=== PATIENT | female | born 1960 | race Hispanic/Latino ===

== ENCOUNTER 2017-09-20 13:39 | Emergency (ER) | payer OTHER ==
[2017-09-20 16:38] LABS: Urine Blood NEGATIVE (NEG); Urine Glucose NEGATIVE (NEG); Urine Protein NEGATIVE (NEG); Urine Specific Gravity >1.030 (1.005-1.030)
[2017-09-20 16:47] LABS: Absolute Monocytes 0.3 K/uL (0.1-1.3); Absolute Neutrophil 3.3 K/uL (1.8-8.0); Basophils % 0.8 % (0-1.3); Eosinophils % 2.5 % (0-4.4); Hematocrit 40.8 % (36.0-45.0); Lymphocytes % 34.1 % (15.3-44.8); MCH 31.4 pg (27.0-35.0); MCV 95.8 fL (80-100); MPV 8.7 fL (7.6-11.3); Monocytes % 4.8 % (3.3-12.3); RBC Red Blood Cell Count 4.26 M/uL (3.86-4.86)
--- NOTE | 2017-09-20 16:49 | RAD REPORT ---
EXAM DESCRIPTION: RAD - Chest Single View - 09/20/2017 4:33 pm CLINICAL HISTORY: Hypertension, shortness of breath COMPARISON: January 2017 TECHNIQUE: AP portable chest image was obtained 1625 hours . FINDINGS: Lungs are clear of mass, infiltrate or failure. Lung markings are similar to comparison. H eart and vasculature are normal. No measurable pleural effusion and no pneumothorax. No gross bony ab normality seen. No acute aortic findings suspected. IMPRESSION: No acute cardiopulmonary process. No significant interval change.
[2017-09-20 16:55] LABS: Protime INR 0.93
[2017-09-20 17:00] LABS: Potassium 3.7 mEq/L (3.6-5.0)
[2017-09-20 17:06] LABS: Albumin 4.2 g/dL (3.2-5.5); Bilirubin Direct 0.1 mg/dL (0-0.2); Bilirubin Total 0.6 mg/dL (0.3-1.2); Magnesium 1.9 mg/dL (1.8-2.5); Protein, Total 7.3 g/dL (6.0-8.3)
--- NOTE | 2017-09-20 17:23 | ER ---
Nurse's Notes [facility] Name: Stefani Schaefer Age: 57 yrs Sex: Female : 1960 Arrival Date: 09/20/2017 Time: 13:44 Bed 20 Private MD: Diagnosis: Elevated blood-pressure reading, without diagnosis of hypertension Presentation: 09/20 14:09 Presenting complaint: Patient states: for a couple of days, i haven't felt that great, hj BP is micki high; denies headache, chest pain or nausea; numbness and tingling on R arm started last Wednesday; reports like a burning pain on my chest;. Transition of care: patient was not received from another setting of care. Onset of symptoms was September 20, 2017. Care prior to arrival: None. 14:09 Method Of Arrival: Ambulatory 14:09 Acuity: THEA 3 hj Triage Assessment: 14:13 General: Appears in no apparent distress. uncomfortable, Behavior is calm, cooperative, hj appropriate for age. Pain: Denies pain. Historical: - Allergies: 14:13 No Known Allergies; hj - Home Meds: 14:13 citalopram 40 mg tab 1 tab once daily [Active]; Xanax Oral [Active]; atorvastatin oral hj oral [Active]; Folic Acid Oral [Active]; - PMHx: 14:13 Anxiety; Crohn's; hj - PSHx: 14:13 Tonsillectomy; ; hj - Immunization history:: Adult Immunizations up to date. - Social history:: Smoking status: Patient/guardian denies using tobacco. Screenin:27 Abuse screen: Denies threats or abuse. Nutritional screening: No deficits noted. em Tuberculosis screening: No symptoms or risk factors identified. Fall Risk None identified. Assessment: 16:00 General: Appears in no apparent distress. comfortable, Behavior is calm, cooperative, em Denies fever. Pain: Denies pain. Neuro: Level of Consciousness is awake, alert, obeys commands, Oriented to person, place, time, situation, Poiser are equal bilaterally Moves all extremities. Speech is normal, Facial symmetry appears normal, Intact Reports dizziness, Denies numbness headache. Cardiovascular: Heart tones S1 S2 present Capillary refill < 3 seconds Patient's skin is warm and dry. Respiratory: Airway is patent Respiratory effort is even, unlabored, Respiratory pattern is regular, symmetrical. GI: Abdomen is round non-distended. : Urine is clear. EENT: No signs and/or symptoms were reported regarding the EENT system. Derm: Skin is intact, Skin is pink, warm \T\ dry. Musculoskeletal: Range of motion: intact in all extremities. 16:10 Reassessment: Patient appears in no apparent distress at this time. I agree with the iw assessment by Marquise Gayle LVN. 17:02 Reassessment: Patient appears in no apparent distress at this time. Patient and/or em family updated on plan of care and expected duration. Pain level reassessed. Patient is alert, oriented x 3, equal unlabored respirations, skin warm/dry/pink. Patient states feeling better. Patient states symptoms have improved. Vital Signs: 14:13 BP 150 / 87; Pulse 85; Resp 18; Temp 98.2(TE); Pulse Ox 96% on R/A; Weight 80.74 kg; hj Height 5 ft. 9 in. (175.26 cm); Pain 0/10; 15:36 BP 146 / 79; Pulse 74; Resp 16; Pulse Ox 96% on R/A; mh5 17:01 BP 128 / 75 LA; mh5 17:01 BP 136 / 80 RA; mh5 14:13 Body Mass Index 26.29 (80.74 kg, 175.26 cm) ED Course: 13:44 Patient arrived in ED. mr 14:11 Triage completed. hj 14:13 Arm band placed on right wrist. hj 15:32 Marquise Gayle LVN is Primary Nurse. em 15:35 David Garcia PA is PHCP. cp 15:35 David Parra MD is Attending Physician. cp 15:46 EKG done, by technical systems architect. reviewed by David SAHNI. at1 16:20 No provider procedures requiring assistance completed. Inserted saline lock: 20 gauge em in right antecubital area, using aseptic technique. Blood collected. 16:20 Initial lab(s) drawn, by me, sent to lab. em 16:27 Patient has correct armband on for positive identification. Bed in low position. Call em light in reach. Side rails up X2. Adult w/ patient. 16:28 X-ray completed. Portable x-ray completed in exam room. jr1 16:31 XRAY Chest (1 view) In Process Unspecified. EDMS 17:22 Nelson Gtz MD is Referral Physician. cp 17:31 IV discontinued, intact, bleeding controlled, No redness/swelling at site. Pressure em dressing applied. Administered Medications: No medications were administered Outcome: 17:22 Discharge ordered by MD. cp 17:31 Discharged to home ambulatory. em 17:31 Condition: good 17:31 Discharge instructions given to Instructed on discharge instructions, follow up and referral plans. Demonstrated understanding of instructions, follow-up care. 17:32 Patient left the ED. em Signatures: Dispatcher [employer] EDMI Cata Sen mr Warner, Tomasa jr1 Marquise Gayle, SEAFOOD SPECIALIST SEAFOOD SPECIALIST em Stacie Gaston, RN RN iw Olya mccarty, clerk entry level EKG Tat1 Asif Colin RN RN David Mcbride, PA PA Cata Carranza 5 Corrections: (The following items were deleted from the chart) 14:14 14:13 Pulse 85bpm; Resp 18bpm; Pulse Ox 96% RA; Temp 98.2F Temporal; 80.74 kg; Height 5 hj ft. 9 in.; BMI: 26.2; Pain 0/10; hj
--- NOTE | 2017-09-20 17:23 | EDPHYS ---
Physician Documentation [facility] Name: Stefani Schaefer Age: 57 yrs Sex: Female : 1960 Arrival Date: 09/20/2017 Time: 13:44 Bed 20 Private MD: ED Physician David Parra HPI: 09/20 16:17 This 57 yrs old Female presents to ER via Ambulatory with complaints of High cp Blood Pressure, Numbness Of Arm. 16:17 The patient has elevated blood pressure and discovered this at home, with a home cp device. Onset: The symptoms/episode began/occurred over last couple days. 16:17 Severity of symptoms: in the emergency department the blood pressure is unchanged. cp 16:17 Associated signs and symptoms: Pertinent negatives: chest pain, dyspnea, headache, cp visual changes, vomiting, weakness. Historical: - Allergies: 14:13 No Known Allergies; hj - Home Meds: 14:13 citalopram 40 mg tab 1 tab once daily [Active]; Xanax Oral [Active]; atorvastatin oral hj oral [Active]; Folic Acid Oral [Active]; - PMHx: 14:13 Anxiety; Crohn's; hj - PSHx: 14:13 Tonsillectomy; ; hj - Immunization history:: Adult Immunizations up to date. - Social history:: Smoking status: Patient/guardian denies using tobacco. ROS: 16:20 Constitutional: Negative for body aches, chills, fever, poor PO intake. cp 16:20 Eyes: Negative for injury, pain, redness, and discharge, ENT: Negative for injury, cp pain, and discharge, Neck: Negative for injury, pain, and swelling, Cardiovascular: Negative for chest pain, palpitations, and edema, Respiratory: Negative for shortness of breath, cough, wheezing, and pleuritic chest pain, Abdomen/GI: Negative for abdominal pain, nausea, vomiting, diarrhea, and constipation, Skin: Negative for injury, rash, and discoloration, Neuro: Negative for headache, weakness, numbness, tingling, and seizure. 16:20 All other systems are negative. Exam: 15:45 ECG was reviewed by the Attending Physician. cp 16:30 Constitutional: The patient appears in no acute distress, alert, awake, cp non-diaphoretic, non-toxic, well developed, well nourished. 16:30 Head/Face: Normocephalic, atraumatic. Eyes: Pupils equal round and reactive to light, cp extra-ocular motions intact. Lids and lashes normal. Conjunctiva and sclera are non-icteric and not injected. Cornea within normal limits. Periorbital areas with no swelling, redness, or edema. ENT: Nares patent. No nasal discharge, no septal abnormalities noted. Tympanic membranes are normal and external auditory canals are clear. Oropharynx with no redness, swelling, or masses, exudates, or evidence of obstruction, uvula midline. Mucous membranes moist. Chest/axilla: Normal chest wall appearance and motion. Nontender with no deformity. No lesions are appreciated. Cardiovascular: Regular rate and rhythm with a normal S1 and S2. No gallops, murmurs, or rubs. Normal PMI, no JVD. No pulse deficits. Respiratory: Lungs have equal breath sounds bilaterally, clear to auscultation and percussion. No rales, rhonchi or wheezes noted. No increased work of breathing, no retractions or nasal flaring. Abdomen/GI: Soft, non-tender, with normal bowel sounds. No distension or tympany. No guarding or rebound. No evidence of tenderness throughout. Back: No spinal tenderness. No costovertebral tenderness. Full range of motion. Skin: Warm, dry with normal turgor. Normal color with no rashes, no lesions, and no evidence of cellulitis. Neuro: Awake and alert, GCS 15, oriented to person, place, time, and situation. Cranial nerves II-XII grossly intact. Motor strength 5/5 in all extremities. Sensory grossly intact. Cerebellar exam normal. Normal gait. Vital Signs: 14:13 BP 150 / 87; Pulse 85; Resp 18; Temp 98.2(TE); Pulse Ox 96% on R/A; Weight 80.74 kg; hj Height 5 ft. 9 in. (175.26 cm); Pain 0/10; 15:36 BP 146 / 79; Pulse 74; Resp 16; Pulse Ox 96% on R/A; mh5 17:01 BP 128 / 75 LA; mh5 17:01 BP 136 / 80 RA; mh5 14:13 Body Mass Index 26.29 (80.74 kg, 175.26 cm) MDM: 15:35 Patient medically screened. cp 17:20 Data reviewed: vital signs, nurses notes, lab test result(s), EKG, radiologic studies, cp plain films. 17:20 Test interpretation: by ED physician or midlevel provider: ECG, plain radiologic cp studies. Counseling: I had a detailed discussion with the patient and/or guardian regarding: the historical points, exam findings, and any diagnostic results supporting the discharge/admit diagnosis, the presence of at least one elevated blood pressure reading (>120/80) during this emergency department visit, lab results, radiology results, the need for outpatient follow up, a family practitioner, to return to the emergency department if symptoms worsen or persist or if there are any questions or concerns that arise at home. Response to treatment: the patient's symptoms have mildly improved after treatment, VSS. No complaints of chest pain or paresthesias reported by patient while in ED. Will discharge to home for continued monitoring. 09/20 16:09 Order name: Basic Metabolic Panel; Complete Time: 17:12 cp 09/20 17:12 Interpretation: Normal except: GFR 79. cp 09/20 16:09 Order name: CBC with Diff; Complete Time: 17:12 cp 09/20 16:09 Order name: Ckmb; Complete Time: 17:12 cp 09/20 16:09 Order name: CPK; Complete Time: 17:12 cp 09/20 16:09 Order name: LFT's; Complete Time: 17:12 cp 09/20 16:09 Order name: Magnesium; Complete Time: 17:12 cp 09/20 16:09 Order name: EKG; Complete Time: 16:10 cp 09/20 16:09 Order name: EKG - Nurse/Tech; Complete Time: 16:25 cp 09/20 16:09 Order name: PT-INR; Complete Time: 17:12 cp 09/20 16:09 Order name: Ptt, Activated; Complete Time: 17:12 cp 09/20 16:09 Order name: Troponin (emerg Dept Use Only); Complete Time: 17:12 cp 09/20 16:09 Order name: XRAY Chest (1 view); Complete Time: 17:12 cp 09/20 16:25 Order name: Urine Dipstick--Ancillary (enter results); Complete Time: 17:12 ag 09/20 17:12 Interpretation: Normal except: UESTR TRACE. cp 09/20 16:25 Order name: Urine --Ancillary (enter results); Complete Time: 17:12 ag 09/20 17:13 Interpretation: Reviewed. cp 09/20 16:09 Order name: Cardiac monitoring; Complete Time: 16:25 cp 09/20 16:09 Order name: IV Saline Lock; Complete Time: 16:25 cp 09/20 16:09 Order name: Labs collected and sent; Complete Time: 16: cp 09/20 16:09 Order name: O2 Per Protocol; Complete Time: 16:25 cp 09/20 16:09 Order name: O2 Sat Monitoring; Complete Time: 16:25 cp 09/20 16:09 Order name: Urine Dipstick-Ancillary (obtain specimen); Complete Time: 16: cp 09/20 16:09 Order name: Blood Pressure Recheck: bilateral upper extremities; Complete Time: 17:02 cp EC:45 Rate is 72 beats/min. Rhythm is regular. VA interval is normal. QRS interval is cp prolonged at 106 msec. QT interval is normal. No ST changes noted. Interpreted by me. Reviewed by me. Administered Medications: No medications were administered Disposition: 09/21 06:55 Co-signature as Attending Physician, David Parra MD I agree with the assessment and alin plan of care. Disposition: 09/20/17 17:22 Discharged to Home. Impression: Elevated blood-pressure reading, without diagnosis of hypertension. - Condition is Stable. - Discharge Instructions: Heart Disease Prevention, How to Take Your Blood Pressure, [id number], Aspirin and Your Heart, DASH Eating Plan. - Medication Reconciliation Form, Thank You Letter, Antibiotic Education, Prescription Opioid Use form. - Follow up: Nelson Gtz MD; When: 1 - 2 days; Reason: Recheck today's complaints. - Problem is new. - Symptoms have improved. Signatures: Dispatcher [employer] David Perez MD MD cha Munoz, Edgar, FABRICATION DEPARTMENT SUPERVISOR FABRICATION DEPARTMENT SUPERVISOR Asif Carlisle RN RN David Mcbride PA PA cp
--- NOTE | 2017-09-20 21:44 | EKG ---
Test Date: 2017-09-20 Test Time: 15:42:17 Service Associate: ELSA MEASUREMENT RESULTS: Intervals: Rate: 72 SD: 170 QRSD: 106 QT: 400 QTc: 438 Parks: P: 58 SD: 170 QRS: -61 T: 47 INTERPRETIVE STATEMENTS: Normal sinus rhythm Incomplete right bundle branch block Left anterior fascicular block Cannot rule out Anterior infarct, age undetermined Abnormal ECG Compared to ECG 02/11/2017 12:37:23 Incomplete right bundle-branch block now present Myocardial infarct finding now present Sinus arrhythmia no longer present Electronically Signed On 09-20-17 21:44:08 CDT by Nelson Gtz
== END 2017-09-20 17:32 | disposition home or self-care (01) ==
LOC: ER 13:39
DX: R03.0 Elevated blood-pressure reading, without diagnosis of hypertension; F41.9 Anxiety disorder, unspecified
CPT/HCPCS: 36415; 71045; 80048; 80076; 81003; 81025; 82550; 82553; 83735; 84484; 85025; 85610; 85730; 93005; 99284

== ENCOUNTER 2017-10-23 00:40 | Emergency (ER) | payer OTHER ==
[2017-10-23] MEDS ORDERED: MORPHINE 4 MG/ML SYR ONE (01:01)
[2017-10-23] MEDS ORDERED: ONDANSETRON 4 MG/2 ML VIAL ONE (01:02)
[2017-10-23 01:34] LABS: Absolute Monocytes 0.5 K/uL (0.1-1.3); Absolute Neutrophil 5.2 K/uL (1.8-8.0); Basophils % 1.3 % (0-1.3); Eosinophils % 2.6 % (0-4.4); Hematocrit 39.8 % (36.0-45.0); Lymphocytes % 32.9 % (15.3-44.8); MCH 31.3 pg (27.0-35.0); MCV 94.8 fL (80-100); MPV 8.8 fL (7.6-11.3)
[2017-10-23 01:39] LABS: Bicarbonate 25 mEq/L (21-31); Glucose Level 118 mg/dL (65-120); Lipase 23 U/L (22-51); Potassium 3.5 mEq/L (3.6-5.0); Sodium Level 137 mEq/L (135-145)
[2017-10-23 01:43] LABS: ALT/SGPT 23 IU/L (10-60); AST/SGOT 21 IU/L (10-42); Alkaline Phosphatase 51 IU/L (42-121); BUN Blood Urea Nitrogen 12 mg/dL (6-20); Bilirubin Total 0.8 mg/dL (0.3-1.2); Protein, Total 7.1 g/dL (6.0-8.3)
[2017-10-23] MEDS ORDERED: KETOROLAC 30 MG/ML INJ ONE (02:50)
--- NOTE | 2017-10-23 04:20 | ER ---
Nurse's Notes [facility] Name: Stefani Schaefer Age: 57 yrs Sex: Female : 1960 Arrival Date: 10/23/2017 Time: 00:40 Bed 5 Private MD: Diagnosis: Other abdominal pain;acute chron's flare Presentation: 10/23 00:55 Presenting complaint: Patient states: abd pain, chills, and vomiting since last night. aa1 Reports hx of Crohn's but states that this is different. Transition of care: patient was not received from another setting of care. Onset of symptoms was October 22, 2017. Initial Sepsis Screen: Does the patient meet any 2 criteria? No. Patient's initial sepsis screen is negative. Does the patient have a suspected source of infection? No. Patient's initial sepsis screen is negative. Care prior to arrival: None. 00:55 Method Of Arrival: Wheelchair aa1 00:55 Acuity: THEA 3 aa1 Historical: - Allergies: 00:58 No Known Allergies; aa1 - Home Meds: 00:58 atorvastatin Oral [Active]; citalopram 40 mg tab 1 tab once daily [Active]; Folic Acid aa1 Oral [Active]; Xanax Oral [Active]; aspirin 81 mg Oral TbEC 1 tab once daily [Active]; - PMHx: 00:58 Anxiety; Crohn's; aa1 - PSHx: 00:58 Tonsillectomy; ; aa1 - Immunization history:: Flu vaccine is up to date. - Social history:: Smoking status: Patient uses tobacco products, smokes one pack cigarettes per day. Screenin:00 Abuse screen: Denies threats or abuse. Denies injuries from another. Nutritional aa1 screening: No deficits noted. Tuberculosis screening: No symptoms or risk factors identified. Fall Risk None identified. Assessment: 01:00 General: Appears in no apparent distress. uncomfortable, Behavior is calm, cooperative, aa1 appropriate for age. Pain: Complains of pain in abdomen Pain currently is 9 out of 10 on a pain scale. Quality of pain is described as sharp, Pain began 4 hours ago. Is continuous. Neuro: Level of Consciousness is awake, alert, obeys commands, Oriented to person, place, time, situation. Cardiovascular: Denies chest pain, palpitations, shortness of breath. Respiratory: Airway is patent Respiratory effort is even, unlabored, Respiratory pattern is regular, symmetrical. GI: Abdomen is non-distended, Bowel sounds present X 4 quads. Abd is soft X 4 quads Reports lower abdominal pain, upper abdominal pain, nausea, vomiting. : No signs and/or symptoms were reported regarding the genitourinary system. EENT: No signs and/or symptoms were reported regarding the EENT system. Derm: Skin is intact, is healthy with good turgor, Skin is pink, warm \T\ dry. Musculoskeletal: Circulation, motion, and sensation intact. Capillary refill < 3 seconds. 01:48 Reassessment: Patient appears in no apparent distress at this time. Patient and/or aa1 family updated on plan of care and expected duration. Pain level reassessed. Patient is alert, oriented x 3, equal unlabored respirations, skin warm/dry/pink. Awaiting lab results. 02:28 Reassessment: Patient appears in no apparent distress at this time. Patient and/or aa1 family updated on plan of care and expected duration. Pain level reassessed. patient is back from CT. found asleep on bed. 02:56 Reassessment: patient complains of pain. provider informed and advised to give pain aa1 medication. 03:11 Reassessment: Patient appears in no apparent distress at this time. Patient and/or aa1 family updated on plan of care and expected duration. Pain level reassessed. Patient is alert, oriented x 3, equal unlabored respirations, skin warm/dry/pink. Awaiting CT results. 04:33 Reassessment: discussed d/c and ff-up instructions, verbalized understanding. mg2 Vital Signs: 00:58 BP 147 / 79; Pulse 81; Resp 20; Temp 97.9; Pulse Ox 96% on R/A; Weight 81.65 kg; Height aa1 5 ft. 9 in. (175.26 cm); Pain 9; 01:48 BP 140 / 75; Pulse 83; Resp 18; Pulse Ox 95% on R/A; aa1 02:39 BP 137 / 70; Pulse 90; Resp 18; Pulse Ox 98% ; Pain 3/10; aa1 03:10 BP 143 / 85; Pulse 67; Resp 18; Pulse Ox 95% on R/A; aa1 04:29 BP 111 / 73; Pulse 69; Resp 18; Pulse Ox 95% on R/A; aa1 00:58 Body Mass Index 26.58 (81.65 kg, 175.26 cm) aa1 ED Course: 00:40 Patient arrived in ED. ds1 00:46 Fred Esparza MD is Attending Physician. ps1 00:55 Tamar Cordero, RN is Primary Nurse. aa1 00:57 Triage completed. aa1 00:58 Arm band placed on right wrist. Patient placed in an exam room, on a stretcher. aa1 01:00 Patient has correct armband on for positive identification. Placed in gown. Bed in low aa1 position. Call light in reach. Pulse ox on. NIBP on. Warm blanket given. 01:15 CBC with Diff Sent. mg2 01:15 CMP Sent. mg2 01:15 Creatinine for Radiology Sent. mg2 01:15 Lipase Sent. mg2 01:15 No provider procedures requiring assistance completed. Inserted saline lock: 20 gauge mg2 in right antecubital area, using aseptic technique. 01:16 Radiology exam delayed due to lab results not completed at this time. (BUN/Creatinine). jg1 02:12 CT Abd/Pelvis - W/Contrast In Process Unspecified. EDMS 02:23 CT completed. Patient tolerated procedure well. Patient moved to CT via stretcher. Patient moved back from CT. 04:18 Alan Hopson MD is Referral Physician. ps1 Administered Medications: 01:14 Drug: Zofran 4 mg Route: IVP; Site: right antecubital; mg2 02:22 Follow up: Response: No adverse reaction; Nausea is decreased aa1 01:14 Drug: morphine 4 mg Route: IVP; Site: right antecubital; mg2 02:22 Follow up: Response: No adverse reaction; Pain is decreased aa1 03:17 Drug: TORadol 30 mg Route: IVP; Site: right antecubital; mg2 04:29 Follow up: Response: No adverse reaction; Pain is decreased aa1 Outcome: 04:19 Discharge ordered by . ps1 04:33 Discharged to mg2 04:34 Discharged to home ambulatory, with family. mg2 04:34 Condition: stable 04:34 Discharge instructions given to patient, family, Instructed on discharge instructions, follow up and referral plans. Demonstrated understanding of instructions, follow-up care, medications, Prescriptions given X 5 04:35 Patient left the ED. mg2 Signatures: Dispatcher [employer] EDMS Tamar Cordero RN RN aa1 Elizabeth Jackson Ervin eh Sanford, Demi ds1 Fred Esparza MD MD ps1 Reese Man RN RN mg2
--- NOTE | 2017-10-23 04:20 | EDPHYS ---
Physician Documentation [facility] Name: Stefani Schaefer Age: 57 yrs Sex: Female : 1960 Arrival Date: 10/23/2017 Time: 00:40 Bed 5 Private MD: ED Physician Fred Esparza HPI: 10/23 04:21 This 57 yrs old Female presents to ER via Wheelchair with complaints of ps1 Abdominal Distention, Abdominal Pain. 04:21 hx of chron's disease. has generalized abdominal pain. Does not localize. Pain rated ps1 moderate. Associated with vomiting. No diarrhea or hematochezia. . Historical: - Allergies: 00:58 No Known Allergies; aa1 - Home Meds: 00:58 atorvastatin Oral [Active]; citalopram 40 mg tab 1 tab once daily [Active]; Folic Acid aa1 Oral [Active]; Xanax Oral [Active]; aspirin 81 mg Oral TbEC 1 tab once daily [Active]; - PMHx: 00:58 Anxiety; Crohn's; aa1 - PSHx: 00:58 Tonsillectomy; ; aa1 - Immunization history:: Flu vaccine is up to date. - Social history:: Smoking status: Patient uses tobacco products, smokes one pack cigarettes per day. ROS: 04:21 Constitutional: Negative for fever, chills, and weight loss, Eyes: Negative for injury, ps1 pain, redness, and discharge, ENT: Negative for injury, pain, and discharge, Cardiovascular: Negative for chest pain, palpitations, and edema, Respiratory: Negative for shortness of breath, cough, wheezing, and pleuritic chest pain. 04:21 Abdomen/GI: Positive for abdominal pain, nausea and vomiting, abdominal cramps. 04:21 MS/Extremity: Negative for injury and deformity, Skin: Negative for injury, rash, and ps1 discoloration, Neuro: Negative for headache, weakness, numbness, tingling, and seizure. Exam: 04:21 Constitutional: This is a well developed, well nourished patient who is awake, alert, ps1 and in no acute distress. Head/Face: Normocephalic, atraumatic. Eyes: Pupils equal round and reactive to light, extra-ocular motions intact. Lids and lashes normal. Conjunctiva and sclera are non-icteric and not injected. Chest/axilla: Normal chest wall appearance and motion. Nontender with no deformity. No lesions are appreciated. Cardiovascular: Regular rate and rhythm. No gallops, murmurs, or rubs. Normal PMI, no JVD. No pulse deficits. Respiratory: Lungs have equal breath sounds bilaterally, clear to auscultation and percussion. No rales, rhonchi or wheezes noted. No increased work of breathing, no retractions or nasal flaring. Abdomen/GI: Soft, non-tender, with normal bowel sounds. No distension or tympany. No guarding or rebound. No evidence of tenderness throughout. Skin: Warm, dry with normal turgor. Normal color with no rashes, no lesions, and no evidence of cellulitis. MS/ Extremity: Pulses equal, no cyanosis. Neurovascular intact. Full, normal range of motion. Neuro: Awake and alert, GCS 15, oriented to person, place, time, and situation. Cranial nerves II-XII grossly intact. Sensory grossly intact. Vital Signs: 00:58 BP 147 / 79; Pulse 81; Resp 20; Temp 97.9; Pulse Ox 96% on R/A; Weight 81.65 kg; Height aa1 5 ft. 9 in. (175.26 cm); Pain 9/10; 01:48 BP 140 / 75; Pulse 83; Resp 18; Pulse Ox 95% on R/A; aa1 02:39 BP 137 / 70; Pulse 90; Resp 18; Pulse Ox 98% ; Pain 3/10; aa1 03:10 BP 143 / 85; Pulse 67; Resp 18; Pulse Ox 95% on R/A; aa1 04:29 BP 111 / 73; Pulse 69; Resp 18; Pulse Ox 95% on R/A; aa1 00:58 Body Mass Index 26.58 (81.65 kg, 175.26 cm) aa1 MDM: 00:56 Patient medically screened. ps1 04:21 Data reviewed: vital signs, nurses notes, lab test result(s), radiologic studies, CT ps1 scan. ED course: consistent with acute chron's flare. No leukocytosis. No abscess. Stable for discharge. home with pain control, steroids, antibiotics. . 10/23 00:55 Order name: CBC with Diff; Complete Time: 01:48 ps1 10/23 00:55 Order name: Creatinine for Radiology; Complete Time: 01:44 ps1 10/23 00:55 Order name: Lipase; Complete Time: 01:44 ps1 10/23 00:55 Order name: CMP; Complete Time: 01:44 ps1 10/23 00:56 Order name: CT Abd/Pelvis - W/Contrast; Complete Time: 12:47 ps1 10/23 00:55 Order name: IV Saline Lock; Complete Time: 01:15 ps1 10/23 00:55 Order name: Labs collected and sent; Complete Time: 01:15 ps1 Administered Medications: 01:14 Drug: Zofran 4 mg Route: IVP; Site: right antecubital; mg2 02:22 Follow up: Response: No adverse reaction; Nausea is decreased aa1 01:14 Drug: morphine 4 mg Route: IVP; Site: right antecubital; mg2 02:22 Follow up: Response: No adverse reaction; Pain is decreased aa1 03:17 Drug: TORadol 30 mg Route: IVP; Site: right antecubital; mg2 04:29 Follow up: Response: No adverse reaction; Pain is decreased aa1 Disposition: 10/23/17 04:19 Discharged to Home. Impression: Other abdominal pain, acute chron's flare. - Condition is Stable. - Discharge Instructions: Abdominal Pain, Adult. - Prescriptions for Flagyl 500 mg Oral Tablet - take 1 tablet by ORAL route every 12 hours for 7 days; 14 tablet. Tylenol- Codeine #3 300-30 mg Oral Tablet - take 2 tablet by ORAL route every 6 hours As needed; 30 tablet. Zofran 4 mg Oral Tablet - take 1 tablet by ORAL route every 12 hours As needed; 20 tablet. Cipro 500 mg Oral Tablet - take 1 tablet by ORAL route every 12 hours for 7 days; 14 tablet. Medrol (Huy) 4 mg Oral Tablets, Dose Pack - take 1 tablet by ORAL route as directed - follow package instructions; 1 packet. sulfasalazine 500 mg Oral tablet - take 1 tablet by ORAL route 4 times per day after meals; 60 tablet. - Medication Reconciliation Form, Thank You Letter, Antibiotic Education, Prescription Opioid Use form. - Follow up: Alan Hopson MD; When: 2 - 3 days; Reason: Recheck today's complaints, Continuance of care, Re-evaluation by your physician. Follow up: Emergency Department; When: As needed; Reason: Fever > 102 F, Worsening of condition. - Problem is an acute exacerbation. - Symptoms are unchanged. Signatures: Dispatcher [employer] Lauren Benoit, IFEANYI-C IFEANYI-Tamar Malloy, RN RN aa1 Fred Esparza MD MD ps1 Reese Man RN RN mg2
--- NOTE | 2017-10-23 10:33 | RAD REPORT ---
EXAM DESCRIPTION: CTAbdomen Pelvis W Contrast - 10/23/2017 4:40 am CLINICAL HISTORY: Abdominal pain. COMPARISON: None. TECHNIQUE: Biphasic CT imaging of the abdomen and pelvis was performed with 100 ml non-ionic IV cont rast. All CT scans are performed using dose optimization technique as appropriate and may include automated exposure control or mA/KV adjustment according to patient size. FINDINGS: The lung bases are clear. The liver, spleen, pancreas, adrenal glands are within normal limits. 17 mm area of irregular enhance ment in the right kidney upper pole laterally on venous phase noted. Additional bilateral renal cysts are present the largest in the inferior pole left kidney measuring 23 mm. No bowel obstruction, free air, free fluid or abscess. Significant dilatation and inflammatory change the terminal ileum seen with fecalization. Mild free fluid is seen in the right lower quadrant. Mild -to-moderate secondary inflammatory changes also suspected in the cecum. Prominent sigmoid diverticul osis is present without diverticulitis. The appendix is not identified as a discrete structure, howev er, no secondary findings of appendicitis are identified. No evidence of significant lymphadenopath y. No suspicious bony findings. IMPRESSION: Acute terminal ileitis with fecalization is identified most compatible with underlying i nflammatory bowel disease/ Crohn's disease. 17 mm area of irregular enhancement right upper pole of the right kidney may represent a solid lesion . Advise nonemergent MR kidney follow-up with contrast for further assessment.
== END 2017-10-23 04:35 | disposition home or self-care (01) ==
LOC: ER 00:40
DX: K50.90 Crohn's disease, unspecified, without complications (principal); F41.9 Anxiety disorder, unspecified; F17.210 Nicotine dependence, cigarettes, uncomplicated; Z79.82 Long term (current) use of aspirin
CPT/HCPCS: 36415; 74177; 80053; 83690; 85025; 96374; 96375; 99284; J2405; Q9967

== ENCOUNTER 2018-09-08 10:49 | Emergency (ER) | payer OTHER ==
--- OUTSIDE RECORDS SUMMARY | 2018-09-08 10:56 | XMS REPORT | Continuity of Care Document ---
:1960 Author Organization Interface Problems Problem Status Onset Date Classification Date Comments Source Reported Medications Medication Details Route Status Patient Ordering Order Source Instructions Provider Date Allergies, Adverse Reactions, Alerts Substance Category Reaction Severity Reaction Status Date Comments Source type Reported Immunizations Immunization Date Given Site Status Last Updated Comments Source Results Order Results Value Reference Date Interpretation Comments Source Name Range Vital Signs Vital Sign Value Date Comments Source Encounters Location Location Encounter Encounter Reason Attending ADM DC Status Source Details Type Number For Provider Date Date Visit Outpatient [id number] GABE 04/28 [facility] Out[facility] [id number] GABE 07/14 [facility] Out[facility] [id number] GABE 04/05 [facility] Procedures Procedure Code Date Perfomer Comments Source
[2018-09-08 11:31] LABS: Absolute Lymphocytes (CBC) 1.4 K/uL (0.7-4.9); Absolute Monocytes 0.3 K/uL (0.1-1.3); Absolute Neutrophil 2.7 K/uL (1.8-8.0); Basophils % 0.9 % (0-1.3); Hematocrit 39.6 % (36.0-45.0); Lymphocytes % 30.6 % (15.3-44.8); MPV 8.2 fL (7.6-11.3); Monocytes % 6.6 % (3.3-12.3); RBC Red Blood Cell Count 4.09 M/uL (3.86-4.86)
--- NOTE | 2018-09-08 11:38 | RAD REPORT ---
EXAM DESCRIPTION: CT - Ct Stroke Brain Wo Cont - 09/08/2018 11:30 am CLINICAL HISTORY: Dizziness COMPARISON: 2017 TECHNIQUE: Computed axial tomography of the head was obtained. IV contrast was not requested. All CT scans are performed using dose optimization technique as appropriate and may include automated exposure control or mA/KV adjustment according to patient size. FINDINGS: An intracranial bleed is not seen . The ventricles are normal in caliber. No extra-axial fluid collection is noted. Fluid within the sinuses/ mastoids is not seen. A mucus retention cyst is present within the right ma xillary sinus IMPRESSION: No acute intracranial abnormality is seen. If patient's symptoms persist MRI of the bra in would be recommended. The exam was discussed with Jesus Manuel in the emergency room approximately 11 20 a.m. September 08, 2018
[2018-09-08] MEDS ORDERED: NA CHLORIDE 0.9% 1,000 ML ONE (11:39)
[2018-09-08] MEDS ORDERED: FOLIC ACID 5 MG/ML VIAL ONE (11:40)
--- NOTE | 2018-09-08 11:43 | RAD REPORT ---
EXAM DESCRIPTION: Leodan Single View09/08/2018 11:37 am CLINICAL HISTORY: Cough COMPARISON: July 2018 FINDINGS: The lungs appear clear of acute infiltrate. The heart is normal size IMPRESSION: No acute abnormalities displayed
[2018-09-08 11:49] LABS: ALT/SGPT 26 U/L (12-78); AST/SGOT 15 U/L (15-37); Albumin 3.7 g/dL (3.4-5.0); Alkaline Phosphatase 62 U/L (45-117); BUN Blood Urea Nitrogen 10 mg/dL (7-18); Bicarbonate 28 mmol/L (21-32); Bilirubin Direct 0.2 mg/dL (0-0.2); Bilirubin Total 0.8 mg/dL (0.2-1.0); Glucose Level 109 mg/dL (74-106); NT PRO-BNP 109 pg/mL (<125); Potassium 4.1 mmol/L (3.5-5.1); Protein, Total 7.4 g/dL (6.4-8.2); Sodium Level 140 mmol/L (136-145); Troponin (Emerg Dept Use Only) < 0.02 ng/mL (0.0-0.045)
[2018-09-08 12:49] LABS: Urine Blood NEGATIVE (NEG); Urine Glucose NEGATIVE (NEG); Urine Protein NEGATIVE (NEG)
[2018-09-08] MEDS ORDERED: ASPIRIN 81 MG CHEWABLE TABLET ONE (13:09)
--- NOTE | 2018-09-08 13:10 | RAD REPORT ---
EXAM DESCRIPTION: USCarotid Artery Bilateral09/08/2018 1:00 pm CLINICAL HISTORY: Syncope COMPARISON: 2017 FINDINGS: The velocity of the right internal carotid artery equals 107 cm/sec. The right ICA/CCA rat io 1.9 The velocity of the left internal carotid artery equals 100 cm/sec. The left ICA/CCA ratio 1.2 Mild plaque is present within the carotid arteries. The vertebral arteries demonstrate antegrade flow IMPRESSION: Mild plaque within the carotid arteries without evidence of a hemodynamically significan t stenosis NASCET criteria used. Mild 0-49% stenosis Moderate 50-69% stenosis Severe 70-99% stenosis
--- NOTE | 2018-09-08 13:24 | RAD REPORT ---
EXAM DESCRIPTION: MRI - Brain Wo Cont - 09/08/2018 1:12 pm CLINICAL HISTORY: Slurred speech COMPARISON: September 08, [address] TECHNIQUE: Axial, sagittal, and coronal magnetic images of the brain were obtained. Contrast was not requested FINDINGS: No abnormal signal is present within the brain. Mild cerebellar tonsillar ectopia is prese nt. Diffusion-weighted/ADC mapping does not reveal evidence of acute infarction. The ventricles are normal caliber. An extra-axial fluid collection is not present A mucus retention cyst is present the left maxillary sinus IMPRESSION: Mild cerebellar tonsillar ectopia No acute abnormality seen
--- NOTE | 2018-09-08 14:25 | EDPHYS ---
Physician Documentation [facility] Name: Stefani Schaefer Age: 58 yrs Sex: Female : 1960 Arrival Date: 09/08/2018 Time: 10:52 Bed 2 Private MD: Alan Hopson ED Physician David Parra HPI: 09/08 11:26 This 58 yrs old Female presents to ER via Wheelchair with complaints of alin Dizziness, Arm Pain. 11:26 The patient presents with dizziness. Onset: The symptoms/episode began/occurred just alin prior to arrival, this morning. Context: occurred at home. Modifying factors: The symptoms are alleviated by nothing, the symptoms are aggravated by nothing. Associated signs and symptoms: Pertinent positives:. Severity of symptoms: At their worst the symptoms were mild in the emergency department the symptoms have improved moderately. Patient's baseline: Neuro:. The patient has experienced similar episodes in the past, multiple times. Historical: - Allergies: 11:21 No Known Allergies; ph - PMHx: 11:21 Anxiety; Crohn's; ph - PSHx: 11:21 Tonsillectomy; ; ph - Immunization history:: Adult Immunizations up to date. - Family history:: not pertinent. - Social history:: Smoking status: Patient uses tobacco products, smokes one pack cigarettes per day. - Ebola Screening: : No symptoms or risks identified at this time. ROS: 11:26 Constitutional: Negative for fever, chills, and weight loss, Eyes: Negative for injury, alin pain, redness, and discharge, ENT: Negative for injury, pain, and discharge, Neck: Negative for injury, pain, and swelling, Cardiovascular: Negative for chest pain, palpitations, and edema, Respiratory: Negative for shortness of breath, cough, wheezing, and pleuritic chest pain, Abdomen/GI: Negative for abdominal pain, nausea, vomiting, diarrhea, and constipation, Back: Negative for injury and pain, : Negative for injury, bleeding, discharge, and swelling, MS/Extremity: Negative for injury and deformity, Skin: Negative for injury, rash, and discoloration, Psych: Negative for depression, anxiety, suicide ideation, homicidal ideation, and hallucinations, Allergy/Immunology: Negative for hives, rash, and allergies, Endocrine: Negative for neck swelling, polydipsia, polyuria, polyphagia, and marked weight changes, Hematologic/Lymphatic: Negative for swollen nodes, abnormal bleeding, and unusual bruising. 11:26 Neuro: Positive for dizziness. Exam: 11:26 Constitutional: This is a well developed, well nourished patient who is awake, alert, alin and in no acute distress. Head/Face: Normocephalic, atraumatic. Eyes: Pupils equal round and reactive to light, extra-ocular motions intact. Lids and lashes normal. Conjunctiva and sclera are non-icteric and not injected. Cornea within normal limits. Periorbital areas with no swelling, redness, or edema. ENT: Nares patent. No nasal discharge, no septal abnormalities noted. Tympanic membranes are normal and external auditory canals are clear. Oropharynx with no redness, swelling, or masses, exudates, or evidence of obstruction, uvula midline. Mucous membranes moist. Neck: Trachea midline, no thyromegaly or masses palpated, and no cervical lymphadenopathy. Supple, full range of motion without nuchal rigidity, or vertebral point tenderness. No Meningismus. Chest/axilla: Normal chest wall appearance and motion. Nontender with no deformity. No lesions are appreciated. Cardiovascular: Regular rate and rhythm with a normal S1 and S2. No gallops, murmurs, or rubs. Normal PMI, no JVD. No pulse deficits. Respiratory: Lungs have equal breath sounds bilaterally, clear to auscultation and percussion. No rales, rhonchi or wheezes noted. No increased work of breathing, no retractions or nasal flaring. Abdomen/GI: Soft, non-tender, with normal bowel sounds. No distension or tympany. No guarding or rebound. No evidence of tenderness throughout. Back: No spinal tenderness. No costovertebral tenderness. Full range of motion. Female : Normal external genitalia. Skin: Warm, dry with normal turgor. Normal color with no rashes, no lesions, and no evidence of cellulitis. MS/ Extremity: Pulses equal, no cyanosis. Neurovascular intact. Full, normal range of motion. Neuro: Awake and alert, GCS 15, oriented to person, place, time, and situation. Cranial nerves II-XII grossly intact. Motor strength 5/5 in all extremities. Sensory grossly intact. Cerebellar exam normal. Normal gait. Psych: Awake, alert, with orientation to person, place and time. Behavior, mood, and affect are within normal limits. Vital Signs: 11:21 BP 164 / 92; Pulse 79; Resp 20; Temp 98.6; Pulse Ox 99% on R/A; Weight 81.65 kg; Height ph 5 ft. 9 in. (175.26 cm); 11:48 BP 140 / 80; Pulse 70 MON; Resp 15; Pulse Ox 100% on R/A; sv 11:21 Body Mass Index 26.58 (81.65 kg, 175.26 cm) ph 11:48 Sinus Rhythm sv NIH Stroke Scale Scores: 11:38 NIHSS Score: 0 sv MDM: 11:09 Patient medically screened. [facility] 11:30 Data reviewed: vital signs, nurses notes, lab test result(s), EKG, radiologic studies, [facility] CT scan, doppler, MRI, plain films. 09/08 11:25 Order name: Basic Metabolic Panel; Complete Time: 11:56 [facility] 09/08 11:25 Order name: CBC with Diff; Complete Time: 11:56 [facility] 09/08 11:25 Order name: LFT's; Complete Time: 11:56 [facility] 09/08 11:25 Order name: Magnesium; Complete Time: 11:56 [facility] 09/08 11:25 Order name: NT PRO-BNP; Complete Time: 11:56 [facility] 09/08 11:25 Order name: PT-INR; Complete Time: 11:56 [facility] 09/08 11:25 Order name: Troponin (emerg Dept Use Only); Complete Time: 11:56 [facility] 09/08 11:25 Order name: XRAY Chest (1 view); Complete Time: 11:56 [facility] 09/08 11:25 Order name: CT Stroke Brain w/o Contrast; Complete Time: 11:56 [facility] 09/08 11:25 Order name: Urine Culture [facility] 09/08 11:30 Order name: US Carotid Artery Bilateral; Complete Time: 13:16 [facility] 09/08 12:07 Order name: Troponin I: 1 pm; Complete Time: 14:24 [facility] 09/08 12:17 Order name: Urine Dipstick--Ancillary (enter results); Complete Time: 12:53 09/08 11:25 Order name: EKG; Complete Time: 11:26 [facility] 09/08 11:25 Order name: Cardiac monitoring; Complete Time: 11:51 [facility] 09/08 11:25 Order name: EKG - Nurse/Tech; Complete Time: 11:51 [facility] 09/08 11:25 Order name: IV Saline Lock; Complete Time: 11: [facility] 09/08 11:25 Order name: Labs collected and sent; Complete Time: 11: [facility] 09/08 11:25 Order name: O2 Per Protocol; Complete Time: 11:51 [facility] 09/08 11:25 Order name: O2 Sat Monitoring; Complete Time: 11: [facility] 09/08 11:25 Order name: Urine Dipstick-Ancillary (obtain specimen); Complete Time: 19:52 [facility] 09/08 12:08 Order name: Brain Wo Cont; Complete Time: 13:29 EDMS Administered Medications: 11:40 Drug: foLIC Acid 1 mg Route: IVPB; Site: right antecubital; sv 11:41 Drug: NS 0.9% 1000 ml Route: IV; Rate: 1 bolus; Site: right antecubital; sv 12:40 Follow up: Response: No adverse reaction; IV Status: Completed infusion; IV Intake: sv 1000ml 13:31 Not Given (Patient Refused; took 81 mg aspirin MOLD PREPARER): Aspirin 81 mg PO once sg Point of Care Testing: Blood Glucose: 11:21 Blood Glucose: 99 mg/dL; ph Ranges: Critical Glucose Levels:Adult <50 mg/dl or >400 mg/dl <40 mg/dl or >180 mg/dl Disposition: 09/08/18 14:25 Discharged to Home. Impression: Dizziness and giddiness, Tobacco abuse counseling, Tobacco use. - Condition is Stable. - Discharge Instructions: Dizziness, Steps to Quit Smoking, Smoking Hazards, Stroke Prevention, Steps to Quit Smoking, Beiy-bo-Aery, Aspirin and Your Heart, Dizziness, [id number]. - Medication Reconciliation Form, Thank You Letter, Antibiotic Education, Prescription Opioid Use form. - Follow up: Alan Hopson; When: 2 - 3 days; Reason: Recheck today's complaints, Continuance of care, Re-evaluation by your physician. Follow up: Elton Hernandez; When: 2 - 3 days; Reason: Recheck today's complaints, Continuance of care, Re-evaluation by your physician. - Problem is new. - Symptoms have improved. NIH Stroke Scale - NIH Stroke Score Date: 09/08/2018 Time: 11:38 Total Score = 0 1a. Level of Consciousness (LOC) - 0(Alert) 1b. Level of Consciousness (LOC) (Year \T\ Age) - 0(Both) 1c. LOC Commands (Open \T\ Closes Eyes/Oxyhydrogen Welder) - 0(Both) 2. Best Gaze (Lateral Gaze Paresis) - 0(Normal) 3. Visual Field Loss - 0(No visual loss) 4. Facial Palsy - 0(Normal) 5a. Left Arm: Motor (10-second hold) - 0(No drift) 5b. Right Arm: Motor (10-second hold) - 0(No drift) 6a. Left Leg: Motor (5-second hold - always test supine) - 0(No drift) 6b. Right Leg: Motor (5-second hold - always test supine) - 0(No drift) 7. Limb Ataxia (finger/nose \T\ heel/lopez - test with eyes open) - 0(Absent) 8. Sensory Loss (pinprick arms/legs/face) - 0(Normal) 9. Best Language: Aphasia (description/naming/reading) - 0(No aphasia) 10. Dysarthria (speech clarity - read or repeat words) - 0(Normal) 11. Extinction and Inattention (visual/tactile/auditory/spatial/personal) - 0(No abnormality) Initials: sv Signatures: Dispatcher [employer] [facility] Savi Roper RN RN sv Anderson, Corey, MD MD cha Hall, Patricia, RN RN [facility], [place] EPPERSON sg Corrections: (The following items were deleted from the chart) 12:08 11:26 MR STROKE PROTOCOL+[id number].RAD.BRZ ordered. [facility] 14:59 14:25 09/08/2018 14:25 Discharged to Home. Impression: Dizziness and giddiness; sv Tobacco abuse counseling; Tobacco use. Condition is Stable. Discharge Instructions: Dizziness, Steps to Quit Smoking, Smoking Hazards, Stroke Prevention, Steps to Quit Smoking, [id number], Aspirin and Your Heart, Dizziness, [id number]. Forms are Medication Reconciliation Form, Thank You Letter, Antibiotic Education, Prescription Opioid Use. Follow up: Alan Hopson; When: 2 - 3 days; Reason: Recheck today's complaints, Continuance of care, Re-evaluation by your physician. Follow up: Elton Hernandez; When: 2 - 3 days; Reason: Recheck today's complaints, Continuance of care, Re-evaluation by your physician. Problem is new. Symptoms have improved. alin
--- NOTE | 2018-09-08 14:25 | ER ---
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 Transition of care: patient was not received from another setting of care. Onset of symptoms was September 08, 2018. Risk Assessment: Do you want to hurt yourself or someone else? Patient reports no desire to harm self or others. Care prior to arrival: Medication(s) given: ASA, 325 mg, x 1, at 1015. 11:18 Method Of Arrival: Wheelchair ph 11:18 Acuity: THEA 2 ph 11:47 Initial Sepsis Screen: Does the patient meet any 2 criteria? No. Patient's initial sv sepsis screen is negative. Does the patient have a suspected source of infection? No. Patient's initial sepsis screen is negative. Historical: - Allergies: 11:21 No Known Allergies; ph - PMHx: 11:21 Anxiety; Crohn's; ph - PSHx: 11:21 Tonsillectomy; ; ph - Immunization history:: Adult Immunizations up to date. - Family history:: not pertinent. - Social history:: Smoking status: Patient uses tobacco products, smokes one pack cigarettes per day. - Ebola Screening: : No symptoms or risks identified at this time. Screenin:38 VAN Screening: Arm Drift: Patient shows no arm weakness. Patient is VAN negative. sv Patient has been NPO before screening. The patient is alert, able to follow commands. The patient does not exhibit slurred or garbled speech The patient is not exhibiting difficulty speaking. The patient does not exhibit difficulty understanding words. The patient is able to swallow own secretions with no drooling or need for suction. Patient tolerated one teaspoon of water. No drooling, immediate coughing, gurgling, or clearing of the throat was noted. The patient tolerated 90mL of water. No drooling, immediate coughing, gurgling, or clearing of the throat was noted. The patient passed the bedside swallow screening. Oral medications may be given as ordered. Contact Physician for further diet orders. Provider notified of bedside swallow screening results: David Parra MD. 11:45 Abuse screen: Denies threats or abuse. Denies injuries from another. Nutritional sv screening: No deficits noted. Tuberculosis screening: No symptoms or risk factors identified. Fall Risk None identified. Assessment: 11:13 Reassessment: Pt taken to CT by RN. ph 11:38 General: Appears in no apparent distress. comfortable, well groomed, well developed, sv Behavior is calm, cooperative, appropriate for age. Pain: Denies pain. Neuro: Level of Consciousness is awake, alert, obeys commands, Oriented to person, place, time, situation, Legal Transcriptionist are equal bilaterally Moves all extremities. Full function Gait is steady, Speech is normal, Facial symmetry appears normal, Facial symmetry: tongue is midline, Pupils are PERRLA, Reports when she had the tingling it was on the posterior side of the right forearm and upper arm. Reports that it is gone at this time.. Denies dizziness, numbness headache. Cardiovascular: Patient's skin is warm and dry. Pulses are 3+ in right radial artery and left radial artery Rhythm is sinus rhythm. Respiratory: Airway is patent Respiratory effort is even, unlabored, Respiratory pattern is regular, symmetrical. Derm: Skin is pink, warm \\T\\ dry. 12:30 Reassessment: Patient appears in no apparent distress at this time. No changes from sv previously documented assessment. Patient and/or family updated on plan of care and expected duration. Pain level reassessed. Patient is alert, oriented x 3, equal unlabored respirations, skin warm/dry/pink. Vital Signs: 11:21 BP 164 / 92; Pulse 79; Resp 20; Temp 98.6; Pulse Ox 99% on R/A; Weight 81.65 kg; Height ph 5 ft. 9 in. (175.26 cm); 11:48 BP 140 / 80; Pulse 70 MON; Resp 15; Pulse Ox 100% on R/A; sv 11:21 Body Mass Index 26.58 (81.65 kg, 175.26 cm) ph 11:48 Sinus Rhythm sv NIH Stroke Scale Scores: 11:38 NIHSS Score: 0 sv ED Course: 10:52 Patient arrived in ED. tw3 10:52 Alan Hopson MD is Private Physician. tw3 11:09 David Parra MD is Attending Physician. alin 11:18 CT completed. Patient tolerated procedure well. Patient moved to CT via wheelchair. sj Patient moved back from CT. 11:20 Triage completed. ph 11:21 Initial lab(s) drawn, by ED staff, sent to lab. Inserted saline lock: 20 gauge in right sv antecubital area, using aseptic technique. ,using aseptic technique. done by Noemí EPPERSON Blood collected. 11:22 Arm band placed on. ph 11:30 Savi Roper RN is Primary Nurse. sv 11:30 CT Stroke Brain w/o Contrast In Process Unspecified. EDMS 11:36 X-ray completed. Portable x-ray completed in exam room. Patient tolerated procedure sw well. 11:38 XRAY Chest (1 view) In Process Unspecified. EDMS 11:41 Patient has correct armband on for positive identification. Placed in gown. Bed in low sv position. Call light in reach. Adult w/ patient. cafeteria monitor on. Pulse ox on. NIBP on. Door closed. Head of bed elevated. 11:41 EKG done, by anesthesia technician. reviewed by David Parra MD. at1 11:42 Lights dimmed. Warm blanket given. sv 11:48 Awaiting lab results, Awaiting radiology results. Awaiting: ultrasound and MRI. sv 12:10 Patient moved to MRI via wheelchair. sv 12:20 Brain Wo Cont In Process Unspecified. EDMS 13:08 US Carotid Artery Bilateral In Process Unspecified. EDMS 13:28 Repeat lab(s) drawn. by pa, sent to lab. dh3 14:25 Alan Hopson MD is Referral Physician. alin 14:25 Elton Hernandez MD is Referral Physician. alin 14:55 No provider procedures requiring assistance completed. IV discontinued, intact, sv bleeding controlled, No redness/swelling at site. Pressure dressing applied, d/c'd by Noemí EPPERSON. 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 sv Outcome: 14:25 Discharge ordered by MD. ogden 14:55 Discharged to home ambulatory, with family, discharge done by Noemí EPPERSON sv 14:55 Condition: stable 14:55 Instructed on the need for admit. 14:59 Patient left the ED. sv NIH Stroke Scale - NIH Stroke Score Date: 09/08/2018 Time: 11:38 Total Score = 0 1a. Level of Consciousness (LOC) - 0(Alert) 1b. Level of Consciousness (LOC) (Year \\T\\ Age) - 0(Both) 1c. LOC Commands (Open \\T\\ Closes Eyes/Private Secretary) - 0(Both) 2. Best Gaze (Lateral Gaze Paresis) - 0(Normal) 3. Visual Field Loss - 0(No visual loss) 4. Facial Palsy - 0(Normal) 5a. Left Arm: Motor (10-second hold) - 0(No drift) 5b. Right Arm: Motor (10-second hold) - 0(No drift) 6a. Left Leg: Motor (5-second hold - always test supine) - 0(No drift) 6b. Right Leg: Motor (5-second hold - always test supine) - 0(No drift) 7. Limb Ataxia (finger/nose \\T\\ heel/lopez - test with eyes open) - 0(Absent) 8. Sensory Loss (pinprick arms/legs/face) - 0(Normal) 9. Best Language: Aphasia (description/naming/reading) - 0(No aphasia) 10. Dysarthria (speech clarity - read or repeat words) - 0(Normal) 11. Extinction and Inattention (visual/tactile/auditory/spatial/personal) - 0(No abnormality) Initials: sv Signatures: Dispatcher [employer] Savi Vail RN RN sv Anderson, Corey, MD MD cha Jones, Rebekah Morillo, Olya, outdoor fitness trainer EKG Tat1 Rosalina Tate, ZEENAT RN ph Dante, Guillermina Watson, Kelly tw3 Deborah Malik 3 Chester Urrutia RN sg
--- NOTE | 2018-09-09 05:34 | EKG ---
Test Date: 2018-09-08 Test Time: 11:24:17 Process Manager: ELSA MEASUREMENT RESULTS: Intervals: Rate: 72 AK: 178 QRSD: 108 QT: 410 QTc: 448 [place]: P: 67 AK: 178 QRS: -30 T: 68 INTERPRETIVE STATEMENTS: Normal sinus rhythm Left axis deviation Incomplete right bundle branch block Abnormal ECG Compared to ECG 09/20/2017 15:42:17 Left-axis deviation now present Left anterior fascicular block no longer present Myocardial infarct finding no longer present Electronically Signed On 09-09-18 05:34:01 CDT by Nelsno Gtz
== END 2018-09-08 14:59 | disposition home or self-care (01) ==
LOC: ER 10:49
DX: R42 Dizziness and giddiness (principal); Z72.0 Tobacco use; Z71.6 Tobacco abuse counseling
CPT/HCPCS: 36415; 70450; 70551; 71045; 80048; 80076; 81003; 82962; 83735; 83880; 84484; 85025; 85610; 87086; 87088; 93005; 93880; 96361; 96374; 99285; J7030

== ENCOUNTER 2020-09-13 20:17 | Emergency (ER) | payer OTHER ==
[2020-09-13 22:37] LABS: Absolute Lymphocytes (CBC) 1.9 K/uL (0.7-4.9); Basophils % 1.1 % (0-1.3); Hematocrit 38.2 % (36.0-45.0); Lymphocytes % 38.2 % (15.3-44.8); MPV 8.3 fL (7.6-11.3)
[2020-09-13 22:53] LABS: ALT/SGPT 20 U/L (12-78); AST/SGOT 14 U/L (15-37); Albumin 3.7 g/dL (3.4-5.0); Alkaline Phosphatase 50 U/L (45-117); BUN Blood Urea Nitrogen 13 mg/dL (7-18); Bicarbonate 27 mmol/L (21-32); Bilirubin Direct 0.1 mg/dL (0-0.2); Bilirubin Total 0.4 mg/dL (0.2-1.0); Glucose Level 73 mg/dL (74-106); Lipase 130 U/L (73-393); Potassium 3.7 mmol/L (3.5-5.1); Protein, Total 7.4 g/dL (6.4-8.2); Sodium Level 141 mmol/L (136-145)
[2020-09-13 23:03] LABS: Urine Blood TRACE (NEG); Urine Glucose NEGATIVE (NEG); Urine Protein NEGATIVE (NEG); Urine Specific Gravity 1.025 (1.005-1.030); Urine pH 5.5 (5.0-7.0)
[2020-09-13 23:18] LABS: Urine Bacteria 20-50 /HPF (<20); Urine Mucus 2+ /HPF (NONE SEEN)
[2020-09-14] MEDS ORDERED: metroNIDAZOLE 500 MG TABLET ONE (00:26)
[2020-09-14] MEDS ORDERED: CEFTRIAXONE/SWI 1gm 1 GM/10 ML SYR ONE (00:26)
--- NOTE | 2020-09-14 01:31 | EDPHYS ---
Physician Documentation [facility] Name: Stefani Schaefer Age: 60 yrs Sex: Female : 1960 Arrival Date: 09/13/2020 Time: 20:18 Bed 15 Private MD: ED Physician Masood Pedro HPI: 09/13 22:07 This 60 yrs old Female presents to ER via Ambulatory with complaints of mh7 Abdominal Swelling. 22:07 The patient presents with abdominal pain in the lower abdomen, abdominal distention mh7 that is diffuse. Onset: The symptoms/episode began/occurred 2 day(s) ago. The symptoms do not radiate. Associated signs and symptoms: Pertinent positives: diarrhea, dysuria, Pertinent negatives: nausea and vomiting, anorexia, blood in stools, chest pain, constipation, fever, headache, hematuria, nausea, palpitations, shortness of breath, vaginal discharge, vomiting, vomiting blood. The symptoms are described as intermittent, vague, waxing/waning. Modifying factors: The symptoms are alleviated by nothing, the symptoms are aggravated by nothing. 22:09 Severity of pain: At its worst the pain was moderate 2 day(s) ago, in the emergency 7 department the pain has improved moderately. Historical: - Allergies: 20:31 No Known Allergies; ca1 - Home Meds: 20:31 atorvastatin Oral [Active]; Lisinopril Oral [Active]; aspirin 81 mg Oral TbEC 1 tab ca1 once daily [Active]; Folic Acid Oral [Active]; citalopram 40 mg tab 1 tab once daily [Active]; Lorazepam Oral [Active]; Sulfasalazine Oral [Active]; omeprazole 40 mg Oral cpDR 1 cap once daily [Active]; dicyclomine 20 mg oral tab 1 tab 4 times per day [Active]; - PMHx: 20:31 Crohn's; Anxiety; High Cholesterol; Hypertension; ca1 - PSHx: 20:31 Tonsillectomy; ; ca1 - Immunization history:: Flu vaccine is up to date. - Social history:: Smoking status: Patient reports the use of cigarette tobacco products, smokes one pack cigarettes per day. ROS: 22:09 Constitutional: Negative for fever, chills, and weight loss, Eyes: Negative for injury, mh7 pain, redness, and discharge, ENT: Negative for injury, pain, and discharge, Neck: Negative for injury, pain, and swelling, Cardiovascular: Negative for chest pain, palpitations, and edema, Respiratory: Negative for shortness of breath, cough, wheezing, and pleuritic chest pain, Back: Negative for injury and pain, MS/Extremity: Negative for injury and deformity, Skin: Negative for injury, rash, and discoloration, Neuro: Negative for headache, weakness, numbness, tingling, and seizure, Psych: Negative for depression, anxiety, suicide ideation, homicidal ideation, and hallucinations, Allergy/Immunology: Negative for hives, rash, and allergies, Endocrine: Negative for neck swelling, polydipsia, polyuria, polyphagia, and marked weight changes, Hematologic/Lymphatic: Negative for swollen nodes, abnormal bleeding, and unusual bruising. Exam: 22:09 Constitutional: This is a well developed, well nourished patient who is awake, alert, mh7 and in no acute distress. Head/Face: Normocephalic, atraumatic. Eyes: Pupils equal round and reactive to light, extra-ocular motions intact. Lids and lashes normal. Conjunctiva and sclera are non-icteric and not injected. Cornea within normal limits. Periorbital areas with no swelling, redness, or edema. Neck: Trachea midline, no thyromegaly or masses palpated, and no cervical lymphadenopathy. Supple, full range of motion without nuchal rigidity, or vertebral point tenderness. No Meningismus. Chest/axilla: Normal chest wall appearance and motion. Nontender with no deformity. No lesions are appreciated. Cardiovascular: Regular rate and rhythm with a normal S1 and S2. No gallops, murmurs, or rubs. Normal PMI, no JVD. No pulse deficits. Respiratory: Lungs have equal breath sounds bilaterally, clear to auscultation and percussion. No rales, rhonchi or wheezes noted. No increased work of breathing, no retractions or nasal flaring. 22:09 Back: No spinal tenderness. No costovertebral tenderness. Full range of motion. Skin: Warm, dry with normal turgor. Normal color with no rashes, no lesions, and no evidence of cellulitis. MS/ Extremity: Pulses equal, no cyanosis. Neurovascular intact. Full, normal range of motion. Neuro: Awake and alert, GCS 15, oriented to person, place, time, and situation. Cranial nerves II-XII grossly intact. Motor strength 5/5 in all extremities. Sensory grossly intact. Cerebellar exam normal. Normal gait. Psych: Awake, alert, with orientation to person, place and time. Behavior, mood, and affect are within normal limits. 22:09 Abdomen/GI: Inspection: distension, that is mild, in the abdomen diffusely, Bowel sounds: normal, in all quadrants, Palpation: mild abdominal tenderness, in the suprapubic area, mass, is not appreciated, rebound tenderness, is not appreciated, voluntary guarding, is not appreciated, involuntary guarding, is not appreciated, no appreciated organomegaly, Rectal exam: the exam is deferred, because of patient request, Indicators: McBurney's point is not tender, He's sign is negative, Rovsing's sign is negative, Obturator sign is negative, Psoas sign is negative, Liver: no appreciated palpable abnormalities, Hernia: not appreciated. Vital Signs: 20:25 BP 150 / 92; Pulse 51; Resp 16 S; Temp 97.9(TE); Pulse Ox 97% on R/A; Weight 83.01 kg ca1 (R); Height 5 ft. 9 in. (175.26 cm) (R); Pain 4/10; 09/14 00:15 BP 145 / 80; Pulse 55; Resp 19; Pulse Ox 98% ; rr5 09/13 20:25 Body Mass Index 27.02 (83.01 kg, 175.26 cm) ca1 MDM: 00:29 Differential diagnosis: appendicitis, bowel obstruction, diverticulitis, non-specific mh7 abd pain, Pyelonephritis, Ureterolithiasis, urinary tract infection. Data reviewed: vital signs, nurses notes, lab test result(s), CBC, electrolytes, urinalysis, radiologic studies, CT scan. Data interpreted: Pulse oximetry: on room air is 97 %. Interpretation: normal. Counseling: I had a detailed discussion with the patient and/or guardian regarding: the historical points, exam findings, and any diagnostic results supporting the discharge/admit diagnosis, the presence of at least one elevated blood pressure reading (>120/80) during this emergency department visit, lab results, radiology results, the need for outpatient follow up, a pharmacovigilance safety expert, to return to the emergency department if symptoms worsen or persist or if there are any questions or concerns that arise at home. Response to treatment: the patient's symptoms have markedly improved after treatment. 00:31 Patient medically screened. [facility] 09/13 22:05 Order name: Basic Metabolic Panel [facility] 09/13 22:05 Order name: CBC with Diff [facility] 09/13 22:05 Order name: Hepatic Function; Complete Time: 23:10 [facility] 09/13 22:05 Order name: Lipase [facility] 09/13 22:07 Order name: Basic Metabolic Panel; Complete Time: 23:10 [facility] 09/13 22:07 Order name: CBC with Automated Diff; Complete Time: 23:10 [facility] 09/13 22:08 Order name: Lipase; Complete Time: 00:02 [facility] 09/13 22:15 Order name: CT Abd/Pelvis - IV Contrast Only [facility] 09/13 22:59 Order name: Urine Microscopic Only; Complete Time: 23:53 [facility] 09/13 23:01 Order name: Urine Dipstick--Ancillary (enter results); Complete Time: 00:02 [facility] 09/13 23:12 Order name: CREATININE WHOLE BLOOD; Complete Time: 00:02 [facility] 09/13 23:18 Order name: Urine Culture [facility] 09/13 22:05 Order name: IV Saline Lock; Complete Time: 22:20 [facility] 09/13 22:05 Order name: Labs collected and sent; Complete Time: 22:20 [facility] 09/13 22:05 Order name: Urine Dipstick-Ancillary (obtain specimen); Complete Time: 22:59 [facility] Administered Medications: 00:10 Drug: Rocephin (cefTRIAXone) 1 grams Route: IV; Rate: per protocol; Site: right rr5 antecubital; 00:40 Follow up: Response: No adverse reaction; IV Status: Completed infusion rr5 00:10 Drug: Flagyl 500 mg Route: PO; rr5 00:40 Follow up: Response: No adverse reaction rr5 Disposition: 09/14/20 00:31 Discharged to Home. Impression: Colitis, UTI, Renal Mass. - Condition is Stable. - Discharge Instructions: Urinary Tract Infection, Adult, [id number], Renal Mass, Colitis. - Prescriptions for Flagyl 500 mg Oral Tablet - take 1 tablet by ORAL route every 8 hours for 10 days; 30 tablet. Cipro 500 mg Oral Tablet - take 1 tablet by ORAL route every 12 hours for 10 days; 20 tablet. - Medication Reconciliation Form, Thank You Letter, Antibiotic Education, Prescription Opioid Use form. - Follow up: Private Physician; When: 1 - 2 days; Reason: Worsening of condition, Recheck today's complaints, Continuance of care, Re-evaluation by your physician. Follow up: Giancarlo Muro MD; When: 1 - 2 days; Reason: Worsening of condition, Recheck today's complaints. - Problem is new. - Symptoms have improved. Signatures: Dispatcher [employer] EDMS Selvin Hennessy, SEAPORT PLANNING MANAGER-C SEAPORT PLANNING MANAGER-Cla1 Antony Mccrary RN RN rr5 Brunilda Zarco RN RN ca1 Masood Pedro MD MD mh7 Corrections: (The following items were deleted from the chart) 00:33 00:31 09/14/2020 00:31 Discharged to Home. Impression: Colitis; UTI. Condition is mh7 Stable. Forms are Medication Reconciliation Form, Thank You Letter, Antibiotic Education, Prescription Opioid Use. Follow up: Private Physician; When: 1 - 2 days; Reason: Worsening of condition, Recheck today's complaints, Continuance of care, Re-evaluation by your physician. Follow up: Giancarlo Muro; When: 1 - 2 days; Reason: Worsening of condition, Recheck today's complaints. Problem is new. Symptoms have improved. mh7 00:44 00:33 09/14/2020 00:31 Discharged to Home. Impression: Colitis; UTI; Renal Mass. rr5 Condition is Stable. Discharge Instructions: Urinary Tract Infection, Adult, [id number], Renal Mass, Colitis. Prescriptions for Flagyl 500 mg Oral Tablet - take 1 tablet by ORAL route every 8 hours for 10 days; 30 tablet, Cipro 500 mg Oral Tablet - take 1 tablet by ORAL route every 12 hours for 10 days; 20 tablet. and Forms are Medication Reconciliation Form, Thank You Letter, Antibiotic Education, Prescription Opioid Use. Follow up: Private Physician; When: 1 - 2 days; Reason: Worsening of condition, Recheck today's complaints, Continuance of care, Re-evaluation by your physician. Follow up: Giancarlo Muro; When: 1 - 2 days; Reason: Worsening of condition, Recheck today's complaints. Problem is new. Symptoms have improved. 7
--- NOTE | 2020-09-14 01:31 | ER ---
Nurse's Notes [facility] Name: Stefani Schaefer Age: 60 yrs Sex: Female : 1960 Arrival Date: 09/13/2020 Time: 20:18 Bed 15 Private MD: Diagnosis: Colitis;UTI;Renal Mass Presentation: 09/13 20:25 Chief complaint: Patient states: I got Crohn's disease. Started not feeling good 2 days ca1 ago, feels bloated. Reports a little diarrhea. Denies N/V. Reports lower abdominal pain. Coronavirus screen: Client denies travel out of the [place] in the last 14 days. diarrhea, Client presents with at least one sign or symptom that may indicate coronavirus-19. Standard/surgical mask placed on the client. Provider contacted for isolation considerations. Ebola Screen: Patient negative for fever greater than or equal to 101.5 degrees Fahrenheit, and additional compatible Ebola Virus Disease symptoms Patient denies exposure to infectious person. Patient denies travel to an Ebola-affected area in the 21 days before illness onset. No symptoms or risks identified at this time. Initial Sepsis Screen: Does the patient meet any 2 criteria? No. Patient's initial sepsis screen is negative. Does the patient have a suspected source of infection? No. Patient's initial sepsis screen is negative. Risk Assessment: Do you want to hurt yourself or someone else? Patient reports no desire to harm self or others. Onset of symptoms was September 13, 2020. 20:25 Method Of Arrival: Ambulatory ca1 20:25 Acuity: THEA 3 ca1 Historical: - Allergies: 20:31 No Known Allergies; ca1 - Home Meds: 20:31 atorvastatin Oral [Active]; Lisinopril Oral [Active]; aspirin 81 mg Oral TbEC 1 tab ca1 once daily [Active]; Folic Acid Oral [Active]; citalopram 40 mg tab 1 tab once daily [Active]; Lorazepam Oral [Active]; Sulfasalazine Oral [Active]; omeprazole 40 mg Oral cpDR 1 cap once daily [Active]; dicyclomine 20 mg oral tab 1 tab 4 times per day [Active]; - PMHx: 20:31 Crohn's; Anxiety; High Cholesterol; Hypertension; ca1 - PSHx: 20:31 Tonsillectomy; ; ca1 - Immunization history:: Flu vaccine is up to date. - Social history:: Smoking status: Patient reports the use of cigarette tobacco products, smokes one pack cigarettes per day. Screenin:40 Abuse screen: Denies threats or abuse. Denies injuries from another. rr5 22:40 Nutritional screening: No deficits noted. Tuberculosis screening: No symptoms or risk rr5 factors identified. Fall Risk IV access (20 points). Total Valadez Fall Scale indicates No Risk (0-24 pts). Assessment: 22:15 General: Appears in no apparent distress. comfortable, Behavior is calm, cooperative, rr5 appropriate for age. 22:15 Pain: Complains of pain in abdomen and suprapubic area and abdomen diffusely Pain rr5 currently is 4 out of 10 on a pain scale. Quality of pain is described as aching, Pain began gradually. Neuro: Level of Consciousness is awake, alert, obeys commands, Oriented to person, place, time. Cardiovascular: Capillary refill < 3 seconds Patient's skin is warm and dry. Respiratory: Airway is patent Respiratory effort is even, unlabored, Respiratory pattern is regular, symmetrical. GI: Abdomen is round non-distended, Abd is soft and non tender Reports lower abdominal pain, diarrhea, nausea. : No signs and/or symptoms were reported regarding the genitourinary system. EENT: No signs and/or symptoms were reported regarding the EENT system. Derm: Skin is intact, is healthy with good turgor, Skin temperature is warm. Musculoskeletal: Circulation, motion, and sensation intact. Capillary refill < 3 seconds. 23:40 Reassessment: Patient appears in no apparent distress at this time. Patient is alert, rr5 oriented x 3, equal unlabored respirations, skin warm/dry/pink. awaiting for results. 09/14 00:42 Reassessment: Patient appears in no apparent distress at this time. Patient is alert, rr5 oriented x 3, equal unlabored respirations, skin warm/dry/pink. discharge instruction given and explained without complaints made. Vital Signs: 09/13 20:25 BP 150 / 92; Pulse 51; Resp 16 S; Temp 97.9(TE); Pulse Ox 97% on R/A; Weight 83.01 kg ca1 (R); Height 5 ft. 9 in. (175.26 cm) (R); Pain 4/10; 03/20 00:15 BP 145 / 80; Pulse 55; Resp 19; Pulse Ox 98% ; rr5 09/13 20:25 Body Mass Index 27.02 (83.01 kg, 175.26 cm) ca1 ED Course: 09/13 20:18 Patient arrived in ED. am4 20:27 Triage completed. ca1 20:31 Arm band placed on right wrist. ca1 21:44 Masood Pedro MD is Attending Physician. 7 22:08 Antony Mccrary RN is Primary Nurse. rr5 22:20 Inserted saline lock: 20 gauge in right antecubital area, using aseptic technique. rr5 Blood collected. 22:53 CT Abd/Pelvis - IV Contrast Only In Process Unspecified. EDMS 22:59 Patient has correct armband on for positive identification. Bed in low position. Call rr5 light in reach. 09/14 00:31 Giancarlo Muro MD is Referral Physician. [facility] 00:43 No provider procedures requiring assistance completed. IV discontinued, intact, rr5 bleeding controlled, No redness/swelling at site. Pressure dressing applied. Administered Medications: 00:10 Drug: Rocephin (cefTRIAXone) 1 grams Route: IV; Rate: per protocol; Site: right rr5 antecubital; 00:40 Follow up: Response: No adverse reaction; IV Status: Completed infusion rr5 00:10 Drug: Flagyl 500 mg Route: PO; rr5 00:40 Follow up: Response: No adverse reaction rr5 Outcome: 00:31 Discharge ordered by . 7 00:43 Discharged to home ambulatory. rr5 00:43 Condition: stable 00:43 Discharge instructions given to patient, Instructed on discharge instructions, follow up and referral plans. medication usage, Demonstrated understanding of instructions, follow-up care, medications, Prescriptions given X 2. 00:44 Patient left the ED. rr5 Signatures: Dispatcher [employer] EDNM Antony Mccrary RN RN rr5 Brunilda Zarco RN RN ca1 Masood Pedro MD MD [facility] Trang Martins 4
[2020-09-14 01:46] VITALS: TEMP 97.9
[2020-09-14 01:47] VITALS: BP 145/80; O2SAT 98
--- NOTE | 2020-09-14 13:03 | RAD REPORT ---
EXAM DESCRIPTION: CT ABDOMEN AND PELVIS WITH CONTRAST CLINICAL HISTORY: ABDOMINAL DISTENTION COMPARISON: None Available. TECHNIQUE: CT of the abdomen and pelvis performed following IV administration of iodinated contras t. This exam was performed according to our departmental dose-optimization program, which includes au tomated exposure control, adjustment of the mA and/or kV according to patient size and/or use of iter ative reconstruction technique. FINDINGS: Lung Bases: Minimal bibasilar dependent atelectasis. Bones: Minimal endplate spondylosis and facet arthropathy. Abdomen: Liver: The liver has normal size and density. No intrahepatic biliary dilatation. Small bilateral hep atic cysts measuring less than 1 cm. Gallbladder: Calcified gallstones. No pericholecystic inflammatory change. The gallbladder has normal caliber. Spleen, Pancreas, and Adrenal Glands: The spleen, pancreas, and adrenal glands are unremarkable. Kidneys: 3.1 x 2.7 cm enhancing mass in the interpolar right kidney. Small left renal cyst. Vasculature: Aortoiliac atherosclerosis. IVC is unremarkable. The portal vein is patent. The proxim al visceral and renal arteries are patent. Stomach: The stomach and duodenum have normal course. Other: No free intraperitoneal air. No free fluid or lymphadenopathy. Pelvis: Bladder: Urinary bladder is unremarkable. Bowel: No dilated loops of large or small bowel. Scattered diverticula of the colon. Wall thickenin g of the descending and sigmoid colon. Appendix: None identified. Pelvis: Uterus is not enlarged. IMPRESSION: 1. Wall thickening of the descending and sigmoid colon. This could be seen with coliti s of infectious or inflammatory etiology. 2. 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 Urology follow-up recommended. 3. Cholelithiasis without other CT evidence of acute cholecystitis. 4. Diverticulosis without evidence of acute diverticulitis. Electronically signed by: Osbaldo Chou 09/13/2020 11:17 PM CDT Due to temporary technical issues with the PACS/Fluency reporting system, reports are being signed by the in house radiologist without review as a courtesy to ensure prompt reporting. The interpreting r adiologist is fully responsible for the content of the report.
== END 2020-09-14 00:44 | disposition home or self-care (01) ==
LOC: ER 20:17
DX: K52.9 Noninfective gastroenteritis and colitis, unspecified (principal); N39.0 Urinary tract infection, site not specified; N28.89 Other specified disorders of kidney and ureter; I10 Essential (primary) hypertension; E78.00 Pure hypercholesterolemia, unspecified; F41.9 Anxiety disorder, unspecified; F17.210 Nicotine dependence, cigarettes, uncomplicated; Z79.82 Long term (current) use of aspirin
CPT/HCPCS: 96365; 87088; 85025; 87086; 80048; 36415; 82565; 80076; 83690; 74177; 99284; Q9967; J0696; 81003; 81015